=== PATIENT | female | born 1990 | race Caucasian/White ===

== ENCOUNTER → 2024-04-23 13:17 | Outpatient (REF) | payer OTHER, SELFPAY | LOC: HWRAD 13:17 | PROVIDERS: ATTENDING PHYSICIAN Family Medicine | DX: R10.9 Unspecified abdominal pain (principal) | CPT/HCPCS: 74177; Q9967 ==

== ENCOUNTER 2024-10-04 14:11 | Emergency (ER) | payer OTHER, SELFPAY ==
[2024-10-04 14:23] VITALS: BP 134/95
[2024-10-04 14:50] LABS: % Basophils 0.2 % (0-2); % Eosinophils 2.4 % (0-6); % Immature Granulocytes 0.3 % (0-0.5); % Lymphocytes 16.2 % (20.5-51.1); % Monocytes 9.2 % (1.7-9.3); % Neutrophils 71.7 % (42.2-75.2); Absolute Eosinophils 0.3 10^3/uL (0-0.7); Absolute Lymphocytes 2.1 10^3/uL (1.2-3.4); Absolute Monocytes 1.2 10^3/uL (0.1-0.6); Absolute Neutrophils 9.4 10^3/uL (1.4-6.5); Hematocrit 45.5 % (37.0-47.0); Hemoglobin 15.3 g/dL (12.0-16.0); Mean Corp Hgb Conc. 33.6 g/dL (33.0-37.0); Mean Corpuscular Hgb 29.8 pg (27.0-31.0); Mean Corpuscular Volume 88.5 fL (81.0-99.0); Mean Platelet Volume 10.3 fL (7.4-10.4); Nucleated Red Blood Cells % 0 %; Platelet Count 403 10^3/uL (130-400); Red Blood Cell Count 5.14 10^6/uL (4.20-5.40); White Blood Cell Count 13.1 10^3/uL (4.8-10.8)
[2024-10-04 14:57] LABS: HCG, Serum Qualitative Screen Negative
[2024-10-04 15:11] LABS: ALT (SGPT) 12 U/L (0-35); AST (SGOT) 15 U/L (14-36); Albumin 4.3 g/dl (3.5-5.0); Alkaline Phosphatase 72 U/L (38-126); Blood Urea Nitrogen 8 mg/dl (7-17); Carbon Dioxide 25 mmol/L (22-30); Chloride 104 mmol/L (98-107); Glucose 106 mg/dl (70-99); Lipase 34 U/L (23-300); Sodium 141 mmol/L (135-145); Total Bilirubin 0.8 mg/dl (0.2-1.3); Total Protein 7.4 g/dl (6.3-8.2); eGFR > 60.00
--- NOTE | 2024-10-04 18:04 | ED.GENMED ---
History of Present Illness
General
Chief Complaint: Abdominal Symptoms
Source: patient
Exam Limitations: none
Time Seen by Provider: 10/04/24 17:51
Nursing documentation reviewed up to this point in time: agreed with
History of Present Illness
History of Present Illness:
Patient to ED [facility] complaint of N/v/D x 2 days. States she is currently taking Wygovy. Her dose was increased 2 weeks ago. No issues until Tuesday. She denies fever/chills. Denies abd. pain. To ED with family for eval
Past History
Past History
ED Past Medical History: Psychiatric and Other (IBS)
ED Past Surgical History: Tonsilectomy and Other (endoscopy)
Social History
Tobacco: Non-smoker
Alcohol: Occasional
Drug: None
Review of Systems
Review of Systems
Allergies reviewed?: Yes
All Other Systems: ROS reviewed and negative except as documented in HPI and ROS
Constitutional: Reports no symptoms
EENT: Reports no symptoms
Respiratory: Reports no symptoms
Cardiac: Reports no symptoms
ABD/GI: Reports nausea, vomiting and diarrhea
: Reports no symptoms
Musculoskeletal: Reports no symptoms
Skin: Reports no symptoms
Neurological: Reports no symptoms
Psychiatric: Reports no symptoms
Phy Exam
General Physical Exam
General Presentation: mild distress
General age: appears stated age
General Skin: warm and dry
General Habitus: normal
General Mental: alert
Cardiovascular Exam
Cardiovascular Exam: regular rate/rhythm and no edema
Gastrointestinal Exam
Gastrointestinal Exam: normal bowel sounds, non tender, soft, no organomegaly, no pulsatile mass, non distended and no cva tenderness
Musculoskeletal Exam
Musculoskeletal Exam: full ROM
Skin Exam
Skin Exam: normal color, warm/dry and no rash
Psychiatric Exam
Psychiatric Exam: normal mood/affect
Course
Orders/Labs/Results
Orders:
Orders
10/04/24 14:29
Test Result ONCE
10/04/24 14:33
Complete Blood Count/With Diff Urgent
Comprehensive Metabolic Panel Urgent
HCG, Serum Qualitative Screen Urgent
Comment: Notify provider if positive test present
Lipase Urgent
10/04/24 18:03
0.9% Sodium Chloride 1000 ml [Nss] 1,000 ml IV BOLUS
Iohexol [Omnipaque] See Protocol PO NOW STA
Ondansetron Injectable [Zofran] 4 mg IV NOW STA
10/04/24 18:04
CT Abd/pel W Iv And Oral Contr Urgent
Comment:
Reason For Exam: N/V/D x 2 days.
10/04/24 18:44
Urinalysis Reflex To Culture Urgent
Date Specimen was Collected: 10/04/24
Time Specimen was Collected: 18:20
Urine Microscopic Reflex Cult Urgent
10/04/24 21:26
Ondansetron Injectable [Zofran] 4 mg .ROUTE .STK-MED ONE
Ondansetron Injectable [Zofran] 4 mg IV NOW STA
10/04/24 21:30
Amoxicillin 875 mg/Clav 125 mg [Augmentin 875 mg/125 mg] 1 tablet PO NOW STA
Abnormal Lab Results
10/04/24 10/04/24
14:33 18:44
WBC 13.1 H 10^3/uL
(4.8-10.8)
Plt Count 403 H 10^3/uL
(130-400)
Absolute Neuts (auto) 9.4 H 10^3/uL
(1.4-6.5)
Absolute Monos (auto) 1.2 H 10^3/uL
(0.1-0.6)
Lymphocytes % 16.2 L %
(20.5-51.1)
Glucose 106 H mg/dl
(70-99)
Urine Ketones 3+ A
(Negative)
Urine Bilirubin 1+ A
(Negative)
Urine Bacteria (Reflex) Few A
(Negative)
Urine Albumin (Reflex) 2+ A
(Neg - Trace)
10/04/24 14:33
10/04/24 14:33
Vital Signs
Initial and Last Documented VS:
Initial Vital Signs
Temp Pulse Resp BP Pulse Ox
98.4 F 100 18 134/95 97
10/04/24 14:23 10/04/24 14:23 10/04/24 14:23 10/04/24 14:23 10/04/24 14:23
Last Documented Vital Signs
Temp Pulse Resp BP Pulse Ox
98.4 F 98 16 137/97 97
10/04/24 14:23 10/04/24 21:50 10/04/24 21:50 10/04/24 21:50 10/04/24 21:50
*Radiology
Radiology exam reviewed: radiology read reviewed
*Pulse Oximetry
Patient hypoxic: no
*Critical Care Note
Total Time (30-74mins, 75-104mins- exclusive of procedures): Not Applicable
Update Note
Update Note:
Patient to ED wth complaint of lower abdominal pain, vomiting. Labs, CT results reviewed with her. Pancolitis seen on CT. Improved with IVF, zofran. Will place on augment and discharge home. Close followup with PCP. Given instructions on s/s to
return to eD and she is agreeable to plan.
ED Attending Note
-
Portions of this chart may have been created with voice recognition software.� Occasional wrong word or��sound alike� substitutions may have occurred due to the inherent limitations of voice recognition software.
Discharge Plan
Departure
Patient Disposition: Home (Routine Discharge)
Date of Disposition: 10/04/24
Time of Disposition: 21:31
Patient with high blood pressure during this ER visit?: No
Condition: Good
Covid-19: Not Applicable
Discharge Problem:
Pancolitis
Instructions: Clear Liquid Diet, Nausea and Vomiting, Adult (DC), Colitis - Discharge instructions
Prescriptions:
New
amoxicillin-pot clavulanate 875-125 mg tablet
1 tab PO BID Qty: 20 0RF
ondansetron 4 mg tablet,disintegrating
4 mg PO Q8H PRN (Reason: nausea and vomiting) 4 Days Qty: 12 0RF
Referrals:
Pepe Dumont, DO [Family Provider] - Follow up in 2-3 days
Stand Alone Forms: Return to Work
Activity Restrictions/Additional Instructions:
Return to the emergency department immediately for any changes in/worsening of your symptoms
Interventions
Interventions:
*Risk Screen - Suicide Last Done: 10/04/24 14:23
*General Assessment Last Done: 10/04/24 14:23
*Neglect/Abuse Screening Last Done: 10/04/24 18:40
*ED- Fall Risk Assessment Last Done: 10/04/24 21:33
*ED COVID-19 Vaccine History Last Done: 10/04/24 14:23
*Nursing Disposition Last Done: 10/04/24 21:50
OR-Awhxmh-Wafhtitals Assessment Last Done: 10/04/24 19:54
Discharge Date and Time
Discharge Date/Time: 10/04/24 21:55
Print Language: MALTESE
[2024-10-04] MEDS: OMNIPAQUE 50 ML PO (18:29)
[2024-10-04] MEDS: ZOFRAN 4 MG IV ×2 (18:37→21:27)
[2024-10-04] MEDS: NSS 1000 IV (18:37)
[2024-10-04 19:03] LABS: Urine Albumin 2+ (Neg - Trace); Urine Bilirubin 1+ (Negative); Urine Character Clear (Clear); Urine Color Yellow; Urine Glucose Negative (Negative); Urine Ketone 3+ (Negative); Urine Leukocyte Negative (Negative); Urine Nitrite Negative (Negative); Urine Occult Blood Negative (Negative); Urine Specific Gravity 1.015 (<1.030); Urine Urobilinogen 1+ (Neg - 1+)
[2024-10-04 19:21] LABS: Urine Bacteria Few (Negative); Urine Mucus Moderate; Urine Red Blood Cell 0-2 /HPF (0-2); Urine Squamous Cell >30 /LPF (Few)
[2024-10-04 19:52] VITALS: BP 116/85
[2024-10-04 19:55] VITALS: BP 116/85
[2024-10-04 21:20] VITALS: BP 123/83
[2024-10-04] MEDS: AUGMENTIN 875 MG/125 MG 1 TABLET PO (21:45)
[2024-10-04 21:50] VITALS: BP 137/97
== END 2024-10-04 21:55 | disposition home or self-care (01) ==
LOC: EMR 14:11
PROVIDERS: Emergency Medicine; Nurse Practitioner; EMERGENCY PHYSICIAN Student in an Organized Health Care Education/Training Program; FAMILY PHYSICIAN Family Medicine
DX: K52.9 Noninfective gastroenteritis and colitis, unspecified (principal)
CPT/HCPCS: 99284; 96374; 96376; 96361; 74177; 80053; 81003; 81015; 83690; 84703; 85025; Q9967